=== PATIENT | male | born 1955 | race Caucasian/White ===

== ENCOUNTER 2019-06-30 11:34 | Inpatient (IN) ==
[2019-06-30] MEDS ORDERED: ASPIRIN PO ONE (11:56)
--- NOTE | 2019-06-30 12:42 | Diag Imaging Result Doc PS360 ---
CHEST-2 VIEWS - 06/30/2019 INDICATION: sob COMPARISON: 04/06/2019 FINDINGS: There is cardiomegaly and pulmonary vascular congestion. There are diffuse bilateral interstitial infiltrates with pronounced curly B lines. No pneumothorax or significant pleural effusion. IMPRESSION: Cardiomegaly and interstitial pulmonary edema. Electronically signed by Nilo Gasca 06/30/2019 12:40 PM
--- NOTE | 2019-06-30 12:48 | EKG Report ---
Test Performed on : 06/30/2019 12:00:40 PM Test Reason : sob Blood Pressure : / mmHG Vent. Rate : 100 BPM Atrial Rate : 100 BPM P-R Int : 156 ms QRS Dur : 112 ms QT Int : 364 ms P-R-T Axes : 039 055 075 degrees QTc Int : 469 ms Normal sinus rhythm. Possible Left atrial enlargement Left ventricular hypertrophy with repolarization abnormality Anterior infarct (cited on or before 19-AUG-2012) Abnormal ECG When compared with ECG of 16-DEC-2017 09:03, Non-specific change in ST segment in Inferior leads Unconfirmed Result
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
[2019-06-30 16:02] LABS: BASO# 0.11 X1000 (0.0-0.2); BASO% 0.6 % (0.0-0.8); EOS# 0.33 X1000 (0.0-0.7); EOS% 1.8 % (0.0-10.0); HEMATOCRIT 39.9 % (42.0-52.0); HEMOGLOBIN 13.7 g/dL (14.0-18.0); IMM GRAN# 0.05 X1000 (0.0-0.04); IMM GRAN% 0.3 % (0.0-0.5); INR 1.03; LYMPH% 24.4 % (20.5-51.1); MCH 29.3 PG (27-31); MCHC 34.3 g/dL (33-37); MCV 85.3 FL (81-99); MONO# 2.33 X1000 (0.11-0.59); MONO% 12.6 % (1.7-9.3); MPV 10.7 FL (7.4-10.4); NEUT# 11.15 X1000 (1.4-6.5); NEUT% 60.3 % (42.2-75.2); PLT 451 X1000 (130-400); PROTIME 13.6 Seconds (11.0-16.0); PTT 29.8 Seconds (22.3-41.8); RBC 4.68 XMIL (4.7-6.1); RDW 13.8 % (11.5-14.5); WBC 18.47 X1000 (4.8-10.8)
[2019-06-30 16:24] LABS: AGAP 16; ALB/GLOB RATIO 1.6; ALBUMIN 4.5 g/dL (3.5-5.0); ALKALINE PHOSPHATASE 43 U/L (32-122); BUN 8 mg/dL (8-22); CALCIUM 9.1 mg/dL (8.8-10.2); CHLORIDE 90 mmol/L (98-107); COSMO 252; CREATININE 0.9 mg/dL (0.7-1.2); ESTIMATED GFR > 60; GLUCOSE 98 mg/dL (70-104); GOT 26 U/L (10-34); GPT 28 U/L (10-44); POTASSIUM 3.9 mmol/L (3.5-5.1); SODIUM 126 mmol/L (136-145); TCO2 20 mmol/L (25-35); TOTAL BILIRUBIN 0.42 mg/dL (0.20-1.00); TOTAL PROTEIN 7.4 g/dL (6.3-8.3)
[2019-06-30 16:25] LABS: CK PROFILE 388 U/L (24-204)
[2019-06-30 16:52] LABS: CK INDEX 2.8 (0.0-2.5); CK-MB 10.94 ng/mL (0.0-5.0)
[2019-06-30 17:25] LABS: URINE SOURCE CLEAN CATCH
[2019-06-30 17:30] LABS: BILIRUBIN URINE NEGATIVE (NEGATIVE); BLOOD URINE NEGATIVE (NEGATIVE); COLOR YELLOW; GLUCOSE URINE NEGATIVE (NEGATIVE); KETONE URINE NEGATIVE (NEGATIVE); LEUKOCYTES URINE NEGATIVE (NEGATIVE); NITRITE URINE NEGATIVE (NEGATIVE); PH URINE 6.5; PROTEIN URINE TRACE mg/dL (NEGATIVE); SP GRAVITY URINE 1.018; TURBIDITY URINE CLEAR (CLEAR); UR EPITHELIAL CELLS <10 /HPF (<10); URINE BACTERIA NEGATIVE /HPF; URINE RBC <10 /HPF (<10); URINE WBC <10 /HPF (<10); UROBILINOGEN URINE NORMAL (NORMAL)
[2019-06-30] MEDS ORDERED: XANAX PO ONE (17:49)
[2019-06-30] MEDS ORDERED: ASPIRIN ONE (18:06)
[2019-06-30] MEDS ORDERED: ATIVAN IV ONE (18:17)
--- NOTE | 2019-06-30 19:33 | Diag Imaging Result Doc PS360 ---
CT ANGIOGRM PULMONARY ARTERIES - 06/30/2019 INDICATION: Shortness of breath TECHNIQUE: Axial CT images were obtained after administering intravenous contrast. Coronal MIP images were generated. COMPARISON: None FINDINGS: There is severe patient motion artifact. No pulmonary embolism. Heart size is top normal. There is extremely severe diffuse calcified coronary artery disease. There are calcified pleural plaques bilaterally. No infiltrates or edema. No pneumothorax or pleural effusion. There are moderate degenerative changes of the spine. No acute or suspicious bony lesion. IMPRESSION: No acute disease. There is severe coronary artery disease. This exam was performed using automated exposure control, adjustment of mA or kV according to patient size, and/or use of iterative reconstruction technique Electronically signed by Nilo Gasca 06/30/2019 7:30 PM
[2019-06-30 20:47] LABS: CK INDEX 3.1 (0.0-2.5); CK-MB 16.11 ng/mL (0.0-5.0)
[2019-06-30] MEDS ORDERED: TYLENOL PO PRN ×2 (20:59→21:01)
[2019-06-30] MEDS ORDERED: ZOFRAN IV PRN ×3 (20:59→22:37)
[2019-06-30] MEDS ORDERED: XANAX PO PRN (21:02)
[2019-06-30] MEDS ORDERED: NS 1,000 ML IV SCH (21:15)
[2019-06-30] MEDS ORDERED: ALBUTEROL NEB INH PRN (22:26)
[2019-06-30] MEDS ORDERED: ZANTAC PO SCH (22:45)
[2019-06-30] MEDS: COGENTIN PO SCH (22:54)
[2019-06-30] MEDS: COREG PO SCH (22:55)
[2019-06-30] MEDS: GEODON PO SCH (22:55)
[2019-06-30] MEDS: RANEXA PO SCH (22:55)
[2019-06-30] MEDS: BUSPAR PO SCH (23:00)
--- NOTE | 2019-06-30 23:12 | EKG Report ---
Test Performed on : 06/30/2019 9:28:58 PM Test Reason : repeat Blood Pressure : / mmHG Vent. Rate : 080 BPM Atrial Rate : 080 BPM P-R Int : 120 ms QRS Dur : 100 ms QT Int : 430 ms P-R-T Axes : 055 062 092 degrees QTc Int : 495 ms Sinus rhythm. with occasional premature ventricular complexes. Possible Left atrial enlargement Anterior infarct (cited on or before 19-AUG-2012) ST & T wave abnormality, consider lateral ischemia Abnormal ECG When compared with ECG of 30-JUN-2019 12:00, (Unconfirmed) premature ventricular complexes. are now present ST now depressed in Anterior leads T wave inversion less evident in Lateral leads Unconfirmed Result
[2019-07-01 00:23] LABS: CK-MB 28.04 ng/mL (0.0-5.0)
[2019-07-01] MEDS: XANAX PO PRN ×3 (00:31→20:47)
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
[2019-07-01 05:42] LABS: HEMATOCRIT 37.8 % (42.0-52.0); HEMOGLOBIN 13.1 g/dL (14.0-18.0); MCH 30.1 PG (27-31); MCHC 34.7 g/dL (33-37); MCV 86.9 FL (81-99); MPV 10.8 FL (7.4-10.4); RBC 4.35 XMIL (4.7-6.1); RDW 14.2 % (11.5-14.5); WBC 10.62 X1000 (4.8-10.8)
[2019-07-01 06:22] LABS: AGAP 14; ALB/GLOB RATIO 1.6; ALBUMIN 4.1 g/dL (3.5-5.0); ALKALINE PHOSPHATASE 39 U/L (32-122); BUN 10 mg/dL (8-22); CALCIUM 8.8 mg/dL (8.8-10.2); CHLORIDE 98 mmol/L (98-107); COSMO 267; CREATININE 0.9 mg/dL (0.7-1.2); ESTIMATED GFR > 60; GLUCOSE 99 mg/dL (70-104); GOT 39 U/L (10-34); GPT 27 U/L (10-44); MAGNESIUM 1.9 mg/dL (1.5-2.7); POTASSIUM 3.9 mmol/L (3.5-5.1); SODIUM 134 mmol/L (136-145); TCO2 22 mmol/L (25-35); TOTAL BILIRUBIN 0.61 mg/dL (0.20-1.00); TOTAL PROTEIN 6.7 g/dL (6.3-8.3)
[2019-07-01] MEDS: PRILOSEC PO SCH (06:25)
--- NOTE | 2019-07-01 07:33 | EKG Report ---
Test Performed on : 07/01/2019 06:59:05 AM Test Reason : Elevated Cardiac Enzymes Blood Pressure : / mmHG Vent. Rate : 071 BPM Atrial Rate : 071 BPM P-R Int : 140 ms QRS Dur : 104 ms QT Int : 482 ms P-R-T Axes : 056 053 097 degrees QTc Int : 523 ms Normal sinus rhythm. Possible Left atrial enlargement Anterior infarct , age undetermined ST & T wave abnormality, consider lateral ischemia Prolonged QT Abnormal ECG Unconfirmed Result
[2019-07-01 08:02] LABS: CK INDEX 4.2 (0.0-2.5); CK-MB 25.14 ng/mL (0.0-5.0)
[2019-07-01] MEDS: COREG PO SCH ×2 (08:27→20:25)
[2019-07-01] MEDS: GEODON PO SCH ×2 (08:27→20:26)
[2019-07-01] MEDS: RANEXA PO SCH ×2 (08:27→20:26)
[2019-07-01] MEDS: NAMENDA PO SCH (08:27)
[2019-07-01] MEDS: COGENTIN PO SCH ×3 (08:27→16:09)
[2019-07-01] MEDS: COLACE PO SCH ×3 (08:27→20:26)
[2019-07-01] MEDS: BUSPAR PO SCH ×2 (08:27→20:27)
[2019-07-01] MEDS: PLAVIX PO SCH (08:27)
[2019-07-01] MEDS ORDERED: ASPIRIN PO SCH (09:00)
[2019-07-01] MEDS: LOVENOX SUBQ SCH ×2 (10:58→22:14)
[2019-07-01] MEDS: ZANTAC PO SCH ×3 (10:58→16:09)
[2019-07-01 13:58] LABS: CK INDEX 3.5 (0.0-2.5); CK-MB 17.5 ng/mL (0.0-5.0)
[2019-07-01] MEDS ORDERED: ALBUTEROL NEB INH PRN (14:34)
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
[2019-07-01] MEDS: IMDUR PO SCH (20:26)
[2019-07-01] MEDS: LIPITOR PO SCH (20:26)
[2019-07-01] MEDS: LOFIBRA PO SCH (20:27)
[2019-07-02 06:22] LABS: HEMATOCRIT 36.3 % (42.0-52.0); HEMOGLOBIN 12.1 g/dL (14.0-18.0); MCHC 33.3 g/dL (33-37); MCV 89.9 FL (81-99); MPV 10.7 FL (7.4-10.4); RBC 4.04 XMIL (4.7-6.1); RDW 14.9 % (11.5-14.5); WBC 9.04 X1000 (4.8-10.8)
[2019-07-02] MEDS: PRILOSEC PO SCH (06:38)
[2019-07-02 06:46] LABS: PHOSPHORUS 2.9 mg/dL (2.7-4.5)
[2019-07-02 06:52] LABS: AGAP 14; BUN 16 mg/dL (8-22); CALCIUM 8.7 mg/dL (8.8-10.2); CHLORIDE 101 mmol/L (98-107); COSMO 272; CREATININE 1.1 mg/dL (0.7-1.2); ESTIMATED GFR > 60; GLUCOSE 113 mg/dL (70-104); POTASSIUM 4.2 mmol/L (3.5-5.1); SODIUM 135 mmol/L (136-145); TCO2 20 mmol/L (25-35)
[2019-07-02] MEDS ORDERED: LASIX PO SCH (09:00)
[2019-07-02] MEDS: ALDACTONE PO SCH (09:10)
[2019-07-02] MEDS: LASIX PO SCH (09:10)
[2019-07-02] MEDS: RANEXA PO SCH ×2 (09:11→21:55)
[2019-07-02] MEDS: COGENTIN PO SCH ×3 (09:12→17:52)
[2019-07-02] MEDS: IMDUR PO SCH ×2 (09:12→21:55)
[2019-07-02] MEDS: NAMENDA PO SCH (09:13)
[2019-07-02] MEDS: PLAVIX PO SCH (09:14)
[2019-07-02] MEDS: GEODON PO SCH ×2 (09:14→21:56)
[2019-07-02] MEDS: COLACE PO SCH ×3 (09:14→21:55)
[2019-07-02] MEDS: COREG PO SCH ×2 (09:14→21:56)
[2019-07-02] MEDS: BUSPAR PO SCH ×2 (09:15→21:56)
[2019-07-02] MEDS: ASPIRIN PO SCH (09:15)
[2019-07-02] MEDS: XANAX PO PRN ×3 (09:21→21:55)
[2019-07-02] MEDS: LOVENOX SUBQ SCH ×3 (11:11→23:34)
[2019-07-02] MEDS: ZANTAC PO SCH ×2 (11:12→17:14)
--- NOTE | 2019-07-02 19:47 | PROGRESS NOTE ---
DATE: 07/02/2019 SUBJECTIVE: The patient is sitting up in bed. He states that he feels better today. No acute events noted overnight. OBJECTIVE: Vital Signs: Temperature 98 degrees, blood pressure 120/67, heart rate 77, respirations 18, O2 saturations 97% on room air, intake 960, output 1.3 L. General: This is a chronically ill-appearing elderly male lying in bed in no acute distress. Heart: S1, S2 normal. Lungs: Clear to auscultation bilaterally. Abdomen: Positive bowel sounds. Soft, nontender, nondistended. Extremities: No edema, no cyanosis. Neuro: The patient is alert and oriented. LABS: Hemoglobin 12, hematocrit 36, platelets 388,000. Sodium 135, potassium 4.2, chloride 101, CO2 20, BUN 16, creatinine 1.1, phos 2.9, mag 2, glucose 113. ASSESSMENT AND PLAN: 1. NSTEMI. Continue on the current medications as directed by mechanical assembly technician. 2. Hyponatremia. Resolved. 3. Coronary artery disease. Stable. Continue with the current medications. 4. Ischemic cardiomyopathy. Aware. 5. History of traumatic brain injury. Aware. 6. Dementia. Aware. 7. Hypertension. Controlled. 8. Deep vein thrombosis prophylaxis. Continue on Lovenox. 9. Disposition. Physical therapy has been consulted. cc: Maribel Granda MD MTDD
[2019-07-02] MEDS: LIPITOR PO SCH (21:56)
[2019-07-02] MEDS: LOFIBRA PO SCH (21:56)
[2019-07-03] MEDS: PRILOSEC PO SCH ×2 (05:36→06:00)
[2019-07-03 06:08] LABS: HEMATOCRIT 37.2 % (42.0-52.0); HEMOGLOBIN 12.1 g/dL (14.0-18.0); MCHC 32.5 g/dL (33-37); MCV 89.2 FL (81-99); MPV 10.8 FL (7.4-10.4); RBC 4.17 XMIL (4.7-6.1); RDW 14.9 % (11.5-14.5); WBC 10.1 X1000 (4.8-10.8)
[2019-07-03 06:21] LABS: AGAP 15; BUN 17 mg/dL (8-22); CALCIUM 8.5 mg/dL (8.8-10.2); CHLORIDE 101 mmol/L (98-107); COSMO 274; CREATININE 1.1 mg/dL (0.7-1.2); ESTIMATED GFR > 60; GLUCOSE 109 mg/dL (70-104); POTASSIUM 3.9 mmol/L (3.5-5.1); SODIUM 136 mmol/L (136-145); TCO2 20 mmol/L (25-35)
[2019-07-03] MEDS: ALDACTONE PO SCH (10:03)
[2019-07-03] MEDS: XANAX PO PRN (10:03)
[2019-07-03] MEDS: NAMENDA PO SCH (10:04)
[2019-07-03] MEDS: GEODON PO SCH (10:04)
[2019-07-03] MEDS: COGENTIN PO SCH (10:04)
[2019-07-03] MEDS: RANEXA PO SCH (10:04)
[2019-07-03] MEDS: IMDUR PO SCH (10:05)
[2019-07-03] MEDS: COREG PO SCH (10:05)
[2019-07-03] MEDS: COLACE PO SCH (10:05)
[2019-07-03] MEDS: BUSPAR PO SCH (10:05)
[2019-07-03] MEDS: LASIX PO SCH (10:05)
[2019-07-03] MEDS: PLAVIX PO SCH (10:05)
[2019-07-03] MEDS: ASPIRIN PO SCH (10:06)
[2019-07-03] MEDS: LOVENOX SUBQ SCH (10:06)
[2019-07-03 11:40] VITALS: BP 137/76
--- NOTE | 2019-07-10 11:18 | DISCHARGE SUMMARY ---
ADMISSION DATE: 06/30/2019 DISCHARGE DATE: 07/03/2019 FINAL DISCHARGE DIAGNOSES: 1. [id number] myocardial infarction. 2. Hyponatremia. 3. Coronary artery disease. 4. Ischemic cardiomyopathy. 5. History of traumatic brain injury. 6. Dementia. 7. Hypertension. CONSULTATIONS: Cardiology consultation with Dr. Bartholomew. HOSPITAL COURSE: Mr. Lizarraga is a 63-year-old male with a history of multiple medical problems and an extensive cardiac history who was brought to the ER with a chief complaint of shortness of breath and sweating. On admission, the patient was noted to have elevated troponins consistent with a non ST-elevation LA. Cardiology was consulted for further recommendations. It was elected to manage the patient medically and after discussion with the patient's and medical decision maker, she opted to make the patient a DNR level 1. Adjustments were made to the patient's cardiac regimen. The patient had no further episodes of chest pain or shortness of breath while hospitalized. He was also seen by physical therapy and did well with ambulation. The patient continued to improve clinically and was ultimately cleared for discharge home. DISCHARGE MEDICATIONS: 1. Imdur 30 mg oral twice a day. 2. Geodon 20 mg oral twice a day. 3. Xanax 1 mg p.o. 3 times a day p.r.n. for anxiety. 4. Aspirin 325 mg oral daily. 5. Plavix 75 mg oral daily. 6. BuSpar 15 mg oral twice a day. 7. Cogentin 0.5 mg oral 3 times a day. 8. Namenda 5 mg p.o. daily. 9. Fenofibrate 160 mg oral at bedtime. 10. Aricept 5 mg oral daily. 11. Ranexa 1000 mg oral twice a day. 12. Omeprazole 40 mg p.o. daily. 13. Albuterol nebulizer every 4 hours p.r.n. for shortness of breath. 14. Lasix 40 mg p.o. daily. 15. Aldactone 12.5 mg oral daily. 16. Cozaar 3.125 mg oral twice a day. 17. Lipitor 80 mg p.o. at bedtime. 18. Zantac 150 mg oral twice a day. DISCHARGE DIET: Low-sodium, low-cholesterol diet. ACTIVITY: As tolerated. FOLLOWUP INSTRUCTIONS: The patient will need to follow up with Dr. Hannah in 2 weeks. The patient will also need to follow up with his primary care physician in 2 weeks. cc: Maribel Granda MD
== END 2019-07-03 11:45 | disposition home or self-care (01) | DRG 281 ==
LOC: ED 11:34 → SUATTDRO 21:26 → 1N 21:26 → 2N 07-01 13:11
PROVIDERS: ATTEND Internal Medicine